=== PATIENT | female | born 1985 | race Caucasian/White ===

== ENCOUNTER 2020-12-10 21:09 | Emergency (ER) | payer OTHER ==
[~2020-12-10] VITALS: Ht 165.1 cm; Wt 85.6 kg
[2020-12-10 21:12] VITALS: BP 106/80
== END 2020-12-10 21:47 | disposition home or self-care (01) ==
LOC: ED 21:20
DX: N10 Acute pyelonephritis (principal); M54.9 Dorsalgia, unspecified